=== PATIENT | female | born 2000 | race Two or more races ===

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

== ENCOUNTER 2021-09-04 20:45 | Emergency (ER) | payer OTHER ==
[2021-09-04 20:53] VITALS: BP 112/74; PULSE 118; TEMP 98.1; BMI 37.8
[2021-09-04] MEDS ORDERED: predniSONE 20 MG TABLET (UD) ONE (21:14)
[2021-09-04] MEDS ORDERED: predniSONE 10 MG TABLET (UD) ONE (21:15)
[2021-09-04] MEDS: ALBUTEROL SO4 2.5/IPRATROPIUM 0.5 INH SOL 3 ML VIAL.NEB. NEB SCH ×3 (21:22→21:37)
[2021-09-04] MEDS ORDERED: predniSONE 20 MG TABLET (UD) PO ONE (21:23)
[2021-09-04] MEDS ORDERED: ALBUTEROL SO4 HFA INHALER IH ONE ×2 (22:40)
[2021-09-05] MEDS ORDERED: predniSONE 20 MG TABLET (UD) PO ONE (21:12)
== END 2021-09-04 23:00 | disposition home or self-care (01) ==
LOC: JER 20:45
PROC: 3E0F7GC Introduction of Other Therapeutic Substance into Respiratory Tract, Via Natural or Artificial Opening (ICD-10-PCS; principal; 2021-09-04)
DX: J45.901 Unspecified asthma with (acute) exacerbation (principal)
CPT/HCPCS: 71045-TC-FY; 94640; 99283-25

== ENCOUNTER 2021-11-05 12:06 | Emergency (ER) | payer OTHER ==
[2021-11-05 12:13] VITALS: BMI 40.7
[2021-11-05] MEDS ORDERED: SODIUM CHLORIDE 1,000 ML IV STA (12:48)
[2021-11-05] MEDS ORDERED: ONDANSETRON 4 MG/2 ML VIAL IVPUSH ONE (12:48)
[2021-11-05] MEDS ORDERED: ACETAMINOPHEN 1000 MG/100 ML BAG IVPB ONE (12:50)
[2021-11-05] MEDS ORDERED: ONDANSETRON 4 MG/2 ML VIAL ONE (12:54)
[2021-11-05] MEDS ORDERED: ACETAMINOPHEN INJECTION 100 ML IVPB ONE (12:55)
[2021-11-05 13:40] LABS: BASO % 0.4 % (0-2.0); HEMATOCRIT 38.5 % (32.4-45.2); HEMOGLOBIN 12.9 GM/dL (10.7-15.3); LYMPH % 12.7 % (8-40); MCH 28.4 pg (25.7-33.7); MCHC 33.5 g/dl (32.0-36.0); MEAN CELL VOLUME 84.8 fl (80-96); MEAN PLT VOLUME 9.3 fl (7.5-11.1); MONO % 9.8 % (3.8-10.2); NEUT % 75.1 % (42.8-82.8); PLATELET COUNT 221 10^3/uL (134-434); RBC 4.54 M/mm3 (3.60-5.2); RDW 14.2 % (11.6-15.6); WHITE BLOOD COUNT 5.6 K/mm3 (4.0-10.0)
[2021-11-05 14:04] LABS: CALCIUM 8.9 mg/dL (8.5-10.1)
[2021-11-05 14:05] LABS: ALBUMIN 3.7 g/dl (3.4-5.0); BLOOD UREA NITROGEN 11.5 mg/dL (7-18)
[2021-11-05 14:08] LABS: CREATININE 0.7 mg/dL (0.55-1.3)
[2021-11-05 14:10] LABS: BILIRUBIN,TOTAL 0.3 mg/dL (0.2-1); TOT PROT 7.6 g/dl (6.4-8.2)
[2021-11-05 14:58] LABS: PH,URINE 6.5 (5.0-8.0); URINE APPEARANCE CLEAR; URINE BILIRUBIN NEGATIVE (NEGATIVE); URINE COLOR YELLOW; URINE GLUCOSE (UA) NEGATIVE (NEGATIVE); URINE KETONE NEGATIVE (NEGATIVE); URINE LEUK ESTERASE NEGATIVE (NEGATIVE); URINE NITRITE NEGATIVE (NEGATIVE); URINE PROTEIN NEGATIVE (NEGATIVE)
[2021-11-05 15:01] LABS: HCG,QUALITATIVE URINE Negative
[2021-11-05 15:15] VITALS: BP 99/67; PULSE 97; TEMP 98.6
[2021-11-06 17:10] LABS: SARS-CoV-2 NAA Detected (Not Detected)
== END 2021-11-05 15:38 | disposition home or self-care (01) ==
LOC: JER 12:06
PROC: 3E033GC Introduction of Other Therapeutic Substance into Peripheral Vein, Percutaneous Approach (ICD-10-PCS; principal; 2021-11-05)
DX: R11.2 Nausea with vomiting, unspecified (principal); R19.7 Diarrhea, unspecified
CPT/HCPCS: 36415; 80053; 81003; 84703; 85025; 87804; 99284-25; C9803-CS; U0003; U0005

== ENCOUNTER 2022-01-06 12:35 | Emergency (ER) | payer OTHER ==
[2022-01-06 13:15] VITALS: BP 110/68; TEMP 98.1; BMI 41.1
[2022-01-06] MEDS ORDERED: MAGNESIUM SULF 50% (8.12 MEQ/2 ML-1 GM VIAL) IVPB ONE (14:16)
[2022-01-06] MEDS ORDERED: DEXAMETHASONE SOD PHOSPHATE 10 MG/1 ML VIAL IVPUSH ONE (14:16)
[2022-01-06] MEDS ORDERED: SODIUM CHLORIDE 0.9% 500 ML INFUS.BAG IV ONE (14:16)
[2022-01-06] MEDS ORDERED: ALBUTEROL SO4 2.5/IPRATROPIUM 0.5 INH SOL 3 ML VIAL.NEB. NEB SCH (14:30)
[2022-01-06] MEDS ORDERED: MAGNESIUM 1GM/D5W - 1 GM/100 ML IVPB IVPB ONE (14:41)
[2022-01-06] MEDS ORDERED: DEXAMETHASONE SOD PHOSPHATE 10 MG/1 ML VIAL ONE (14:41)
[2022-01-06] MEDS ORDERED: ALBUTEROL SO4 2.5/IPRATROPIUM 0.5 INH SOL 3 ML VIAL.NEB. NEB ONE (14:41)
[2022-01-06 16:49] LABS: BASO % 0.5 % (0-2.0); EOS % 0.8 % (0-4.5); HEMATOCRIT 42.2 % (32.4-45.2); HEMOGLOBIN 13.7 GM/dL (10.7-15.3); LYMPH % 24.6 % (8-40); MCH 27.9 pg (25.7-33.7); MCHC 32.5 g/dl (32.0-36.0); MEAN CELL VOLUME 85.9 fl (80-96); MEAN PLT VOLUME 9.8 fl (7.5-11.1); MONO % 6.9 % (3.8-10.2); NEUT % 67.2 % (42.8-82.8); PLATELET COUNT 248 10^3/uL (134-434); RBC 4.92 M/mm3 (3.60-5.2); RDW 14.8 % (11.6-15.6); WHITE BLOOD COUNT 5.6 K/mm3 (4.0-10.0)
[2022-01-06 17:04] LABS: CALCIUM 8.9 mg/dL (8.5-10.1)
[2022-01-06 17:05] LABS: ALBUMIN 3.8 g/dl (3.4-5.0); BLOOD UREA NITROGEN 7.9 mg/dL (7-18)
[2022-01-06 17:08] LABS: CREATININE 0.7 mg/dL (0.55-1.3)
[2022-01-06 17:09] LABS: TOT PROT 7.9 g/dl (6.4-8.2)
[2022-01-06 17:10] LABS: BILIRUBIN,TOTAL 0.2 mg/dL (0.2-1)
[2022-01-06 19:45] VITALS: PULSE 91
== END 2022-01-06 18:45 | disposition home or self-care (01) ==
LOC: JER 12:35
PROC: 3E0F7GC Introduction of Other Therapeutic Substance into Respiratory Tract, Via Natural or Artificial Opening (ICD-10-PCS; principal; 2022-01-06)
PROC: 3E033GC Introduction of Other Therapeutic Substance into Peripheral Vein, Percutaneous Approach (ICD-10-PCS; 2022-01-06)
PROC: 3E033GC Introduction of Other Therapeutic Substance into Peripheral Vein, Percutaneous Approach (ICD-10-PCS; 2022-01-06)
DX: J45.901 Unspecified asthma with (acute) exacerbation (principal)
CPT/HCPCS: 0241U-QW; 36415; 71046-TC-FY; 80053; 85025; 99284-25; J1100

== ENCOUNTER 2022-06-08 08:23 | Inpatient (IN) | payer OTHER ==
[2022-06-08] MEDS ORDERED: ONDANSETRON 4 MG/2 ML VIAL IVPUSH ONE (09:14)
[2022-06-08] MEDS ORDERED: SODIUM CHLORIDE 0.9% 500 ML INFUS.BAG IV ONE (09:14)
[2022-06-08] MEDS ORDERED: FAMOTIDINE 20 MG/50 ML IVPB 20 MG/50 ML MG IVPB ONE ×2 (09:14→09:22)
[2022-06-08] MEDS ORDERED: ONDANSETRON 4 MG/2 ML VIAL ONE (09:22)
[2022-06-08 09:51] LABS: HEMATOCRIT 42.3 % (32.4-45.2); HEMOGLOBIN 14.2 GM/dL (10.7-15.3); MCH 29.1 pg (25.7-33.7); MCHC 33.4 g/dl (32.0-36.0); MEAN PLT VOLUME 8.8 fl (7.5-11.1); NEUT % 54.3 % (42.8-82.8); PLATELET COUNT 238 10^3/uL (134-434); RBC 4.87 M/mm3 (3.60-5.2); RDW 13.9 % (11.6-15.6); WHITE BLOOD COUNT 5.2 K/mm3 (4.0-10.0)
[2022-06-08 09:52] LABS: BASO % 0.4 % (0-2.0); LYMPH % 34.9 % (8-40); MONO % 10.4 % (3.8-10.2)
[2022-06-08 09:56] LABS: EPI CELLS >36 /uL (0-25.1); HYALINE CASTS 25 /uL (0-3.1); PH,URINE 5.5 (5.0-8.0); URINE APPEARANCE TURBID; URINE BILIRUBIN 2+ (NEGATIVE); URINE COLOR ORANGE; URINE GLUCOSE (UA) NEGATIVE (NEGATIVE); URINE KETONE TRACE (NEGATIVE); URINE LEUK ESTERASE 1+ (NEGATIVE); URINE NITRITE POSITIVE (NEGATIVE); URINE PROTEIN 2+ (NEGATIVE); URINE RBC 12860 /uL (0-23.9); URINE WBC 90 /uL (0-25.8)
[2022-06-08 09:58] LABS: HCG,QUALITATIVE URINE NEGATIVE
[2022-06-08 10:25] LABS: ALBUMIN 3.4 g/dl (3.4-5.0); CALCIUM 8.7 mg/dL (8.5-10.1)
[2022-06-08 10:26] LABS: BLOOD UREA NITROGEN 16.4 mg/dL (7-18)
[2022-06-08 10:30] LABS: BILIRUBIN,TOTAL 0.7 mg/dL (0.2-1)
[2022-06-08 11:58] LABS: URINE BACTERIA 547 /uL (0-1359)
[2022-06-08] MEDS ORDERED: ALBUTEROL SO4 2.5/IPRATROPIUM 0.5 INH SOL 3 ML VIAL.NEB. NEB ONE (12:35)
[2022-06-08] MEDS ORDERED: DEXAMETHASONE SOD PHOSPHATE 10 MG/1 ML VIAL ONE (12:35)
[2022-06-08] MEDS ORDERED: DEXAMETHASONE LIQUID 0.5 MG/5 ML PO ONE (12:40)
[2022-06-08] MEDS: ALBUTEROL SO4 2.5/IPRATROPIUM 0.5 INH SOL 3 ML VIAL.NEB. NEB SCH ×5 (12:42→19:52)
[2022-06-08] MEDS ORDERED: AZITHROMYCIN 500 MG TABLET PO ONE (15:37)
[2022-06-08] MEDS ORDERED: CEFTRIAXONE 1,000 MG in DEXTROSE 5%-WATER - 50 ML IVPB ONE (15:37)
[2022-06-08] MEDS ORDERED: methylPREDNISolone NA SUCC 125 MG/2 ML VIAL IVPB ONE (15:45)
[2022-06-08] MEDS ORDERED: CEFTRIAXONE 1 GM/50 ML BAG ONE (15:49)
[2022-06-08] MEDS ORDERED: methylPREDNISolone NA SUCC 40 MG/1 ML VIAL ONE (15:49)
[2022-06-08] MEDS ORDERED: AZITHROMYCIN 250 MG TABLET ONE (15:51)
[2022-06-08] MEDS ORDERED: OSELTAMIVIR PHOSPHATE 75 MG CAPSULE PO SCH (15:54)
[2022-06-08] MEDS ORDERED: ACETAMINOPHEN 325 MG TABLET (FP) PO PRN (15:56)
[2022-06-08] MEDS ORDERED: MAGNESIUM 2GM/50ML STERILE WATER IVPB IVPB ONE (16:52)
[2022-06-08 18:35] VITALS: BMI 61.9
[2022-06-08] MEDS: OSELTAMIVIR PHOSPHATE 75 MG CAPSULE PO SCH (22:45)
[2022-06-09] MEDS: ALBUTEROL SO4 2.5/IPRATROPIUM 0.5 INH SOL 3 ML VIAL.NEB. NEB SCH ×5 (08:20→19:16)
[2022-06-09 09:33] LABS: HEMATOCRIT 43.8 % (32.4-45.2); HEMOGLOBIN 13.9 GM/dL (10.7-15.3); MCH 27.8 pg (25.7-33.7); MCHC 31.7 g/dl (32.0-36.0); MEAN CELL VOLUME 87.6 fl (80-96); MEAN PLT VOLUME 8.9 fl (7.5-11.1); PLATELET COUNT 230 10^3/uL (134-434); RDW 14.1 % (11.6-15.6); WHITE BLOOD COUNT 3.9 K/mm3 (4.0-10.0)
[2022-06-09 10:04] LABS: CALCIUM 8.4 mg/dL (8.5-10.1)
[2022-06-09 10:05] LABS: ALBUMIN 3.4 g/dl (3.4-5.0); BLOOD UREA NITROGEN 13.5 mg/dL (7-18); MAGNESIUM 2.5 mg/dL (1.8-2.4)
[2022-06-09 10:06] LABS: PHOSPHOROUS 3.8 mg/dL (2.5-4.9)
[2022-06-09 10:07] LABS: CREATININE 0.8 mg/dL (0.55-1.3)
[2022-06-09 10:08] LABS: BILIRUBIN,TOTAL 0.2 mg/dL (0.2-1); TOT PROT 7.6 g/dl (6.4-8.2)
[2022-06-09 10:11] LABS: ANISOCYTOSIS 2+; MACROCYTOSIS 0; PLATELET ESTIMATE INCREASED
[2022-06-09] MEDS: OSELTAMIVIR PHOSPHATE 75 MG CAPSULE PO SCH ×2 (10:59→21:59)
[2022-06-09] MEDS: methylPREDNISolone NA SUCC 40 MG/1 ML VIAL IVPUSH SCH (10:59)
[2022-06-10] MEDS: ALBUTEROL SO4 2.5/IPRATROPIUM 0.5 INH SOL 3 ML VIAL.NEB. NEB SCH ×4 (08:18→20:18)
[2022-06-10] MEDS: OSELTAMIVIR PHOSPHATE 75 MG CAPSULE PO SCH ×2 (10:27→21:37)
[2022-06-10] MEDS: methylPREDNISolone NA SUCC 40 MG/1 ML VIAL IVPUSH SCH ×2 (10:27→18:01)
[2022-06-10] MEDS: MONTELUKAST NA 10 MG TABLET PO SCH (21:37)
[2022-06-11] MEDS: methylPREDNISolone NA SUCC 40 MG/1 ML VIAL IVPUSH SCH ×3 (02:44→17:19)
[2022-06-11] MEDS: ALBUTEROL SO4 2.5/IPRATROPIUM 0.5 INH SOL 3 ML VIAL.NEB. NEB SCH ×4 (07:25→20:28)
[2022-06-11 07:29] VITALS: RESP 20
[2022-06-11 10:17] LABS: BASO % 0.2 % (0-2.0); HEMATOCRIT 43.6 % (32.4-45.2); HEMOGLOBIN 13.9 GM/dL (10.7-15.3); LYMPH % 12.4 % (8-40); MCH 27.8 pg (25.7-33.7); MEAN CELL VOLUME 86.9 fl (80-96); MEAN PLT VOLUME 9.3 fl (7.5-11.1); NEUT % 79.4 % (42.8-82.8); PLATELET COUNT 234 10^3/uL (134-434); RBC 5.02 M/mm3 (3.60-5.2); RDW 13.9 % (11.6-15.6); WHITE BLOOD COUNT 8.3 K/mm3 (4.0-10.0)
[2022-06-11] MEDS: OSELTAMIVIR PHOSPHATE 75 MG CAPSULE PO SCH ×3 (10:24→21:34)
[2022-06-11 11:42] LABS: CALCIUM 8.8 mg/dL (8.5-10.1)
[2022-06-11 11:43] LABS: ALBUMIN 3.4 g/dl (3.4-5.0)
[2022-06-11 11:46] LABS: CREATININE 0.7 mg/dL (0.55-1.3)
[2022-06-11 11:47] LABS: TOT PROT 7.6 g/dl (6.4-8.2)
[2022-06-11 11:48] LABS: BILIRUBIN,TOTAL 0.3 mg/dL (0.2-1)
[2022-06-11] MEDS: ENOXAPARIN NA (PORCINE) 40 MG/0.4 ML DISP.SYRIN SQ SCH (21:33)
[2022-06-11] MEDS: MONTELUKAST NA 10 MG TABLET PO SCH (21:34)
[2022-06-12 07:46] VITALS: BP 102/72; PULSE 76; TEMP 98.1
[2022-06-12] MEDS: ALBUTEROL SO4 2.5/IPRATROPIUM 0.5 INH SOL 3 ML VIAL.NEB. NEB SCH ×2 (07:55→12:19)
[2022-06-12] MEDS ORDERED: PANTOPRAZOLE 40 MG TABLET PO SCH (10:00)
[2022-06-12] MEDS ORDERED: predniSONE 20 MG TABLET (UD) PO SCH (10:00)
[2022-06-12] MEDS: ENOXAPARIN NA (PORCINE) 40 MG/0.4 ML DISP.SYRIN SQ SCH (10:15)
[2022-06-12] MEDS: OSELTAMIVIR PHOSPHATE 75 MG CAPSULE PO SCH (10:15)
[2022-06-12 10:40] LABS: BASO % 0.1 % (0-2.0); HEMATOCRIT 43.5 % (32.4-45.2); LYMPH % 32.5 % (8-40); MCHC 32.1 g/dl (32.0-36.0); MEAN CELL VOLUME 87.1 fl (80-96); MEAN PLT VOLUME 9.3 fl (7.5-11.1); MONO % 4.4 % (3.8-10.2); PLATELET COUNT 285 10^3/uL (134-434); RDW 14.1 % (11.6-15.6); WHITE BLOOD COUNT 14.5 K/mm3 (4.0-10.0)
[2022-06-12 11:07] LABS: CALCIUM 8.9 mg/dL (8.5-10.1)
[2022-06-12 11:09] LABS: CREATININE 0.7 mg/dL (0.55-1.3)
== END 2022-06-12 13:50 | disposition home or self-care (01) | DRG 113 ==
LOC: JER 08:23 → JERBED 15:38 → J8W 17:58
PROVIDERS: ADMIT Internal Medicine; ATTEND Internal Medicine
DX: J11.1 Influenza due to unidentified influenza virus with other respiratory manifestations (principal); J45.901 Unspecified asthma with (acute) exacerbation; G47.33 Obstructive sleep apnea (adult) (pediatric); R09.02 Hypoxemia; R11.2 Nausea with vomiting, unspecified; E66.9 Obesity, unspecified; Z68.41 Body mass index [BMI] 40.0-44.9, adult
CPT/HCPCS: 0241U-QW; 36415; 71046-TC-FY; 71275-TC; 76700-TC; 80048; 80053; 81003; 83690; 83735; 84100; 84703; 85025; 87086; 94640; 94761; 99285-25; Q9967

== ENCOUNTER 2023-02-10 10:52 | Emergency (ER) | payer OTHER ==
[2023-02-10 11:03] VITALS: BP 102/68; PULSE 88; RESP 18; TEMP 98.3; BMI 41.1
[2023-02-10] MEDS ORDERED: ACETAMINOPHEN 1000 MG/100 ML BAG IVPB ONE (11:23)
[2023-02-10] MEDS ORDERED: FAMOTIDINE 20 MG/50 ML IVPB 20 MG/50 ML MG IVPB ONE ×2 (11:23→11:52)
[2023-02-10] MEDS ORDERED: ONDANSETRON 4 MG/2 ML VIAL IVPUSH ONE (11:23)
[2023-02-10] MEDS ORDERED: ACETAMINOPHEN INJECTION 100 ML IVPB ONE (11:52)
[2023-02-10] MEDS ORDERED: ONDANSETRON 4 MG/2 ML VIAL ONE (11:52)
[2023-02-10 12:14] LABS: PH,URINE 5.5 (5.0-8.0); URINE APPEARANCE CLEAR; URINE BILIRUBIN NEGATIVE (NEGATIVE); URINE COLOR YELLOW; URINE GLUCOSE (UA) NEGATIVE (NEGATIVE); URINE KETONE NEGATIVE (NEGATIVE); URINE LEUK ESTERASE NEGATIVE (NEGATIVE); URINE NITRITE NEGATIVE (NEGATIVE); URINE PROTEIN NEGATIVE (NEGATIVE); URINE UROBILINOGEN 0.2 mg/dL (0.2-1.0)
[2023-02-10 12:15] LABS: BASO % 0.4 % (0-2.0); EOS % 2.3 % (0-4.5); HEMATOCRIT 41.6 % (32.4-45.2); HEMOGLOBIN 13.3 GM/dL (10.7-15.3); LYMPH % 32.6 % (8-40); MCH 28.5 pg (25.7-33.7); MONO % 5.3 % (3.8-10.2); NEUT % 59.4 % (42.8-82.8); PLATELET COUNT 298 10^3/uL (134-434); RBC 4.68 M/mm3 (3.60-5.2); RDW 14.8 % (11.6-15.6); WHITE BLOOD COUNT 9.1 K/mm3 (4.0-10.0)
[2023-02-10 12:16] LABS: HCG,QUALITATIVE URINE Negative
[2023-02-10 12:45] LABS: CALCIUM 9.2 mg/dL (8.5-10.1); POTASSIUM 4.4 mmol/L (3.5-5.1)
[2023-02-10 12:47] LABS: ALBUMIN 3.7 g/dl (3.4-5.0); BLOOD UREA NITROGEN 19.7 mg/dL (7-18)
[2023-02-10 12:50] LABS: CREATININE 0.9 mg/dL (0.55-1.3)
[2023-02-10 12:51] LABS: BILIRUBIN,TOTAL 0.4 mg/dL (0.2-1); TOT PROT 7.7 g/dl (6.4-8.2)
== END 2023-02-10 13:35 | disposition home or self-care (01) ==
LOC: JER 10:52
PROC: 3E033GC Introduction of Other Therapeutic Substance into Peripheral Vein, Percutaneous Approach (ICD-10-PCS; principal; 2023-02-10)
PROC: 3E033GC Introduction of Other Therapeutic Substance into Peripheral Vein, Percutaneous Approach (ICD-10-PCS; 2023-02-10)
PROC: 3E033NZ Introduction of Analgesics, Hypnotics, Sedatives into Peripheral Vein, Percutaneous Approach (ICD-10-PCS; 2023-02-10)
DX: K52.9 Noninfective gastroenteritis and colitis, unspecified (principal); R11.2 Nausea with vomiting, unspecified; R10.9 Unspecified abdominal pain; R68.83 Chills (without fever)
CPT/HCPCS: 36415; 80053; 81003; 83690; 84703; 85025; 87086; 99284-25

== ENCOUNTER 2023-07-01 23:22 | Emergency (ER) | payer OTHER ==
[2023-07-01 23:38] VITALS: BP 91/66; PULSE 107; RESP 20; TEMP 100.5; BMI 41.1
[2023-07-02] MEDS ORDERED: ONDANSETRON *ODT* 4 MG TABLET SL ONE (00:56)
[2023-07-02] MEDS ORDERED: IBUPROFEN 400 MG TABLET (FP) PO ONE ×2 (00:58→01:31)
[2023-07-02] MEDS ORDERED: ONDANSETRON *ODT* 4 MG TABLET ONE (01:30)
== END 2023-07-02 01:40 | disposition home or self-care (01) ==
LOC: JER 23:22
DX: R68.83 Chills (without fever) (principal); M79.10 Myalgia, unspecified site; R11.0 Nausea; U07.1 COVID-19; R53.1 Weakness; R09.81 Nasal congestion
CPT/HCPCS: 0241U-QW; 99283-25; Q0162

== ENCOUNTER 2024-01-16 13:30 | Emergency (ER) | payer OTHER ==
[2024-01-16 13:40] VITALS: BP 107/44; PULSE 100; RESP 22; TEMP 98.8; BMI 37.0
[2024-01-16] MEDS ORDERED: ALBUTEROL SO4 2.5/IPRATROPIUM 0.5 INH SOL 3 ML VIAL.NEB. NEB ONE ×2 (14:23→15:52)
[2024-01-16] MEDS ORDERED: predniSONE 20 MG TABLET (UD) ONE (14:27)
[2024-01-16] MEDS: predniSONE 20 MG TABLET (UD) PO ONE (14:28)
[2024-01-16] MEDS: ALBUTEROL SO4 2.5/IPRATROPIUM 0.5 INH SOL 3 ML VIAL.NEB. NEB SCH (14:29)
[2024-01-16 15:17] LABS: THROAT:GRP A STREP NOT DETECTED (NOTDETECTED)
[2024-01-16] MEDS: ALBUTEROL SO4 2.5/IPRATROPIUM 0.5 INH SOL 3 ML VIAL.NEB. NEB ONE (15:53)
== END 2024-01-16 16:29 | disposition home or self-care (01) ==
LOC: JERFT 13:30
PROC: 3E0F7GC Introduction of Other Therapeutic Substance into Respiratory Tract, Via Natural or Artificial Opening (ICD-10-PCS; principal; 2024-01-16)
PROC: 3E0F7GC Introduction of Other Therapeutic Substance into Respiratory Tract, Via Natural or Artificial Opening (ICD-10-PCS; 2024-01-16)
DX: R05.9 Cough, unspecified (principal); R06.02 Shortness of breath; J02.9 Acute pharyngitis, unspecified; R09.81 Nasal congestion; R68.83 Chills (without fever); R51.9 Headache, unspecified; J45.901 Unspecified asthma with (acute) exacerbation; Z87.891 Personal history of nicotine dependence; Z20.822 Contact with and (suspected) exposure to COVID-19
CPT/HCPCS: 0241U-QW; 71046-TC-FY; 84703; 87070; 87651; 99284-25

== ENCOUNTER 2024-03-08 23:17 | Emergency (ER) | payer OTHER ==
[2024-03-08 23:28] VITALS: BP 99/64; PULSE 93; RESP 18; TEMP 99.5; BMI 37.3
[2024-03-09] MEDS ORDERED: ONDANSETRON *ODT* 4 MG TABLET ONE (00:14)
[2024-03-09] MEDS ORDERED: ONDANSETRON *ODT* 4 MG TABLET SL ONE (00:15)
[2024-03-09] MEDS: ONDANSETRON *ODT* 4 MG TABLET SL ONE (00:17)
== END 2024-03-09 00:50 | disposition home or self-care (01) ==
LOC: JER 23:17
DX: R05.9 Cough, unspecified (principal); R11.2 Nausea with vomiting, unspecified; R09.81 Nasal congestion; J98.9 Respiratory disorder, unspecified; B97.89 Other viral agents as the cause of diseases classified elsewhere; M79.10 Myalgia, unspecified site; J02.9 Acute pharyngitis, unspecified; R50.9 Fever, unspecified; U07.1 COVID-19
CPT/HCPCS: 0241U-QW; 84703; 99283-25; Q0162

== ENCOUNTER 2024-08-20 08:52 | Emergency (ER) | payer OTHER ==
[2024-08-20 09:06] VITALS: BP 105/71; PULSE 85; RESP 18; TEMP 99; BMI 34.7
[2024-08-20] MEDS ORDERED: ALBUTEROL SO4 2.5/IPRATROPIUM 0.5 INH SOL 3 ML VIAL.NEB. NEB ONE (09:51)
[2024-08-20] MEDS ORDERED: ONDANSETRON *ODT* 4 MG TABLET ONE (09:52)
[2024-08-20] MEDS ORDERED: ACETAMINOPHEN 500 MG TABLET (FP) ONE (09:52)
[2024-08-20] MEDS: ACETAMINOPHEN 500 MG TABLET (FP) PO ONE (09:55)
[2024-08-20] MEDS: ALBUTEROL SO4 2.5/IPRATROPIUM 0.5 INH SOL 3 ML VIAL.NEB. NEB ONE (09:55)
[2024-08-20] MEDS: ONDANSETRON *ODT* 4 MG TABLET SL ONE (09:55)
== END 2024-08-20 10:25 | disposition home or self-care (01) ==
LOC: JERFT 08:52
PROC: 3E0F7GC Introduction of Other Therapeutic Substance into Respiratory Tract, Via Natural or Artificial Opening (ICD-10-PCS; principal; 2024-08-20)
DX: J39.8 Other specified diseases of upper respiratory tract (principal); B97.89 Other viral agents as the cause of diseases classified elsewhere; R11.2 Nausea with vomiting, unspecified; M79.10 Myalgia, unspecified site
CPT/HCPCS: 99284-25; Q0162